=== PATIENT | female | born 1960 | race Caucasian/White ===

== ENCOUNTER 2017-04-18 22:35 | Emergency (ER) | payer MEDICAID ==
[~2017-04-18] VITALS: Ht 157.5 cm; Wt 54.0 kg
[~2017-04-18 22:35] MED LIST: BACTDS PO; CEPH-443 PO; CLIN-73 PO; HC1C30 TOP; HYDR-1049 PO; IBUP-1542 PO; OFLO5DRO7 RIGHT EAR
[2017-04-18 22:45] VITALS: Ht 157.5 cm; Wt 54.0 kg
[2017-04-18] MEDS ORDERED: SIRO1POW MC (23:37)
--- NOTE | 2017-04-18 23:44 | ERA ---
ER Documentation Chief Complaint Date/Time DATE: 04/18/17 TIME: 23:42 Chief Complaint Pt reports out of transplant med Rapamycin 1mg HPI This is a 57-year-old female who presents with a medication refill request. Patient has lost her new medication Sirolimus (rapamycin) 1 g that was prescribed by her lime kiln operator 1 week ago. Patient has not been able to reach the lime kiln operator over the weekend. I will go ahead and give a 5 day course of the medication until she can set up an appointment with lime kiln operator for medication refill. Patient denies any adverse reactions to medications or any other complaints at this time. ROS All systems reviewed and are negative except as per history of present illness. Medications Home Meds Active Scripts Sirolimus (Sirolimus) 1 Gm Powder, 1 GM MC ONCE for 5 Days Prov:CHANO GREY PA-C 04/18/17 Clindamycin Hcl* (Clindamycin Hcl*) 300 Mg Capsule, 300 MG PO TID for 10 Days, CAP Prov:HARPREET BLACK PA-C 12/28/15 Hydrocodone/Ibuprofen (Vicoprofen 200-7.5 MG) 1 Each Tablet, 1 TAB PO Q6H Y for PAIN for 7 Days, TAB Prov:SHRAVAN JIMENEZ 12/26/15 Clindamycin Hcl* (Clindamycin Hcl*) 300 Mg Capsule, 450 MG PO TID for 10 Days, CAP Prov:SHRAVAN JIMENEZ 12/26/15 Cephalexin* (Keflex*) 500 Mg Capsule, 500 MG PO QID for 7 Days, CAP Prov:ERIC JARAMILLO PA-C 08/21/15 Sulfamethoxazole-Trimethoprim* (Bactrim* DS) 800-160 Mg Tab, 1 TAB PO BID for 7 Days, TAB Prov:ERIC JARAMILLO PA-C 08/21/15 Sulfamethoxazole-Trimethoprim* (Bactrim* DS) 800-160 Mg Tab, 1 TAB PO BID for 5 Days, TAB Prov:SHRAVAN JIMENEZ 07/28/15 Cephalexin* (Keflex*) 500 Mg Capsule, 500 MG PO QID for 5 Days, CAP Prov:SHRAVAN JIMENEZ 07/28/15 Hydrocortisone* Topical (Hydrocortisone* Topical) 1%-28.35 Gm Cream..g., 1 APPLIC TOP Q6 Y for ITCHING, #1 TUB Prov:SHRAVAN JIMENEZ 07/28/15 Ibuprofen* (Motrin*) 600 Mg Tab, 600 MG PO Q6, #30 TAB Prov:SHRAVAN JIMENEZ 07/28/15 Ofloxacin* (Floxin* Otic) 0.3% -10 Ml Soln, 3 DROP RIGHT EAR BID for 10 Days, BOTTLE Prov:SHRAVAN JIMENEZ 07/28/15 Allergies Allergies: Coded Allergies: acetaminophen (Verified Allergy, Unknown, 12/28/15) PMhx/Soc History of Surgery: Yes (FALLOPIAN TUBE RESECTION) Anesthesia Reaction: No Hx Neurological Disorder: No Hx Respiratory Disorders: No Hx Cardiac Disorders: No Hx Psychiatric Problems: No Hx Miscellaneous Medical Probl: Yes (RENAL PROBLEM) Hx Alcohol Use: No Hx Substance Use: No Hx Tobacco Use: No Smoking Status: Never smoker Physical Exam Vitals Vital Signs Date Time Temp Pulse Resp B/P Pulse Ox O2 Delivery O2 Flow Rate FiO2 04/18/17 22:45 98.2 87 18 136/73 100 Physical Exam Const: Healthy appearing 57-year-old female in no acute distress. Head: Atraumatic Eyes: Normal Conjunctiva ENT: Normal External Ears, Nose and Mouth. Neck: Full range of motion..~ No meningismus. Resp: Clear to auscultation bilaterally Cardio: Regular rate, no obvious murmur heard. Abd: Soft, non tender, non distended. Normal bowel sounds Skin: No petechiae or rashes Back: No midline or flank tenderness Ext: No cyanosis, or edema Neur: Awake and alert Psych: Normal Mood and Affect Procedures/MDM Presented for medication refills. Has had no issues with the medication in the past. Have consulted my attending physician Dr. Mcfadden who has agreed that a 5 day course of the medication would be appropriate. Patient's vitals are stable and her current condition is appropriate for discharge Departure Diagnosis: Primary Impression: Kidney disease Additional Impression: Encounter for medication refill Condition: Stable Patient Instructions: Taking Medicine Safely Additional Instructions: Follow-up with original prescriber within the next week for refill of medication. If any adverse effects arise, discontinue medication and return to the emergency department immediately. If you have any questions about the medication ask us before you leave or discuss with the pharmacist. CHANO GREY PA-C April 18, 2017 23:44
[2017-04-19] MEDS ORDERED: SIRO1POW MC (00:11)
== END 2017-04-18 23:48 | disposition home or self-care (01) ==
LOC: FTE 22:35
DX: N28.9 Disorder of kidney and ureter, unspecified (principal)
CPT/HCPCS: 99281

== ENCOUNTER 2017-11-08 04:12 | Emergency (ER) | payer MEDICAID ==
[~2017-11-08] VITALS: Ht 157.5 cm; Wt 55.5 kg
[~2017-11-08 04:12] MED LIST changes: +SIRO1POW MC
[2017-11-08 04:18] VITALS: Ht 157.5 cm; Wt 55.5 kg
[2017-11-08] MEDS ORDERED: ALBUTEROL 0.083% (NEB) 2.5 MG/3 ML AMP NEB STA (05:37)
[2017-11-08] MEDS ORDERED: IPRATROPIUM (NEB) 0.5 MG/2.5 ML AMP NEB STA (05:37)
--- NOTE | 2017-11-08 05:37 | ERD ---
ER Documentation Chief Complaint Chief Complaint cough/chest congestion x 2 weeks HPI This 57 YO femal reports cough and LEE, pt states that she is coughing so hard it hurts in her back. pt reports fever 101, with body aches , sx 5 days ROS All systems reviewed and are negative except as per history of present illness. Medications Home Meds Active Scripts Ibuprofen* (Motrin*) 600 Mg Tab, 600 MG PO Q6, #30 TAB Prov:DAVID,BRENDA 11/08/17 Benzonatate* (Tessalon Perle*) 100 Mg Capsule, 200 MG PO Q8H Y for COUGH for 7 Days, CAP Prov:DAVID,BRENDA 11/08/17 Albuterol Sulfate* (Ventolin HFA*) 18 Gm Hfa.aer.ad, 2 PUFF INHALATION Q4H, #1 INHALER Prov:DAVID,BRENDA 11/08/17 Sirolimus (Sirolimus) 1 Gm Powder, 1 GM MC BID for 5 Days Prov:CHANO GREY PA-C 04/19/17 Clindamycin Hcl* (Clindamycin Hcl*) 300 Mg Capsule, 300 MG PO TID for 10 Days, CAP Prov:HARPREET BLACK PA-C 12/28/15 Hydrocodone/Ibuprofen (Vicoprofen 200-7.5 MG) 1 Each Tablet, 1 TAB PO Q6H Y for PAIN for 7 Days, TAB Prov:SHRAVAN JIMENEZ 12/26/15 Clindamycin Hcl* (Clindamycin Hcl*) 300 Mg Capsule, 450 MG PO TID for 10 Days, CAP Prov:SHRAVAN JIMENEZ 12/26/15 Cephalexin* (Keflex*) 500 Mg Capsule, 500 MG PO QID for 7 Days, CAP Prov:ERIC JARAMILLO PA-C 08/21/15 Sulfamethoxazole-Trimethoprim* (Bactrim* DS) 800-160 Mg Tab, 1 TAB PO BID for 7 Days, TAB Prov:ERIC JARAMILLO PA-C 08/21/15 Sulfamethoxazole-Trimethoprim* (Bactrim* DS) 800-160 Mg Tab, 1 TAB PO BID for 5 Days, TAB Prov:SHRAVAN JIMENEZ 07/28/15 Cephalexin* (Keflex*) 500 Mg Capsule, 500 MG PO QID for 5 Days, CAP Prov:SHRAVAN JIMENEZ 07/28/15 Hydrocortisone* Topical (Hydrocortisone* Topical) 1%-28.35 Gm Cream..g., 1 APPLIC TOP Q6 Y for ITCHING, #1 TUB Prov:SHRAVAN JIMENEZ 07/28/15 Ibuprofen* (Motrin*) 600 Mg Tab, 600 MG PO Q6, #30 TAB Prov:SHRAVAN JIMENEZ 07/28/15 Ofloxacin* (Floxin* Otic) 0.3% -10 Ml Soln, 3 DROP RIGHT EAR BID for 10 Days, BOTTLE Prov:SHRAVAN JIMENEZ 07/28/15 Allergies Allergies: Coded Allergies: acetaminophen (Verified Allergy, Mild, 11/08/17) chest tightness PMhx/Soc Medical and Surgical Hx: pt denies Medical Hx, pt denies Surgical Hx History of Surgery: No Anesthesia Reaction: No Hx Neurological Disorder: No Hx Respiratory Disorders: No Hx Cardiac Disorders: No Hx Psychiatric Problems: No Hx Miscellaneous Medical Probl: No Hx Alcohol Use: No Hx Substance Use: No Hx Tobacco Use: No Smoking Status: Never smoker Physical Exam Vitals Vital Signs Date Time Temp Pulse Resp B/P Pulse Ox O2 Delivery O2 Flow Rate FiO2 11/08/17 06:18 100 20 98 21 11/08/17 04:18 97.8 94 20 106/63 98 VSS Physical Exam Const: Well-nourished, well-hydrated, well-appearing 37-year-old female in no acute distress Eyes: Conjunctiva injected ENT: TM transcalent, nasal mucosa edematous, pharynx inflamed Neck: Full range of motion..~ No meningismus. Resp: dininshed breath sounds, cough with deep breathing, wheezing with forced exp Cardio: Regular rate and rhythm, no murmurs Abd: Soft, non tender, non distended. Normal bowel sounds Neur: Awake and alert Psych: Normal Mood and Affect Results 24 hrs Current Medications Medications (Trade) Dose Ordered Sig/Thierry Route PRN Reason Start Time Stop Time Status Last Admin Dose Admin Albuterol (Proventil 0.083% (Neb)) 7.5 mg ONCE STAT NEB 11/08/17 05:37 11/08/17 06:16 DC Ipratropium [place] (Atrovent 0.02% (Neb)) 0.5 mg ONCE STAT NEB 11/08/17 05:37 11/08/17 05:39 DC 11/08/17 06:17 Albuterol (Proventil 0.083% (Neb)) 5 mg ONCE STAT HHN 11/08/17 06:13 11/08/17 06:16 DC 11/08/17 06:18 Procedures/MDM This 57-year-old female presents to emergency department for evaluation of cough , patient reports she is coughing so hard that her back hurts, reports shortness of breath, wheezing, intermittent fever, denies history of asthma or seasonal allergies, emergency room course includes history and physical exam, patient presents coughing, wheezing with oxygen saturation documented at 94%. Emergency room course includes history and physical exam, patient receives albuterol, Atrovent hand-held nebulized treatment, oxygen saturation increases to 98% on room air, plan to discharge patient home with albuterol, Tessalon Perles, and 600 mg ibuprofen for back pain. Increase fluids, increase rest, follow-up with primary care physician. Patient is stable with no new complaints during ER course, clinically there is no current evidence to suggest meningitis, sepsis, acute abdomen, acute coronary syndromes, pulmonary embolism or any other emergent condition appearing to require further evaluation or hospitalization. I feel the patient is stable for discharge at this time. I have discussed results, examination findings, the treatment plan with the patient and family present prior to discharge. Indications for emergent reevaluation, side effects of medication were also discussed. All questions were answered. Patient verbalizes understanding and agrees with plan of care. Departure Diagnosis: Primary Impression: Bronchitis Condition: Good Patient Instructions: Acute Bronchitis Additional Instructions: Thank you for for coming to [facility] for your care today. Please ask your nurse or provider if you have questions about your care today and do not leave until all your questions have been answered. Please use any medications given as directed and follow-up with your doctor (or the doctor you were referred to) in the next 2-3 days. If you do not have a primary care doctor you may follow up at the [facility] (listed below). You may also use motrin and tylenol as needed for fever and/or pain unless instructed otherwise by your provider or nurse. Indications for more urgent follow-up have been discussed, but you may return to the Emergency Department at ANY time for any worrisome or worsening symptoms. If you have abdominal pain, please know that no test or exam you received is perfect and you should follow up within 8 hours for continued pain. If you had any imaging studies today, such as an X-Ray or CT Scan, these studies will be reviewed later by a radiologist. You will be called if there are important findings that were not identified today, so make sure the contact information you provided at registration is correct. If you received any narcotic pain control medicine today, such as Vicodin, Morphine or Dilaudid, your coordination and judgment may be affected for a number of hours. Please do not drive or operate heavy machinery, and you may want someone to assist you at home. If you were given a prescription for narcotic medication, be aware that it is very addictive- use sparingly and only if necessary. BRENDA HERNANDEZ Nov 08, 2017 05:37
[2017-11-08] MEDS ORDERED: ALBUTEROL 0.083% (NEB) 2.5 MG/3 ML AMP HHN STA (06:13)
[2017-11-08] MEDS ORDERED: ALBU18HF INHALATION (07:19)
[2017-11-08] MEDS ORDERED: BENZ100C70 PO (07:20)
[2017-11-08] MEDS ORDERED: IBUP-1542 PO ×2 (07:20→15:34)
[2017-11-08] MEDS ORDERED: ALBU8.5H3 INH (15:34)
[2017-11-08] MEDS ORDERED: D-ME473S2 PO (15:35)
== END 2017-11-08 08:47 | disposition left against medical advice (07) ==
LOC: FTE 04:12
DX: J40 Bronchitis, not specified as acute or chronic (principal)
CPT/HCPCS: 94664; Z7502; Z7610

== ENCOUNTER 2017-11-08 12:11 | Emergency (ER) | payer MEDICAID ==
[~2017-11-08] VITALS: Ht 154.9 cm; Wt 56.8 kg
[~2017-11-08 12:11] MED LIST changes: +ALBU18HF INHALATION; +BENZ100C70 PO
[2017-11-08 12:16] VITALS: Ht 154.9 cm; Wt 56.8 kg
--- NOTE | 2017-11-08 13:38 | ERD ---
ER Documentation Chief Complaint Chief Complaint flu like symptoms x 5 days HPI The patient is a 57-year-old female, presenting to the ER because of nasal congestion, nasal discharge, intermittent cough for the last 5 days. She was seen earlier today and discharged. She complains of subjective fever, denies neck pain, chest pain, abdominal pain, vomiting, dysuria, diarrhea. She does not smoke nor drink Past medical/surgical history: None ROS All systems reviewed and are negative except as per history of present illness. Medications Home Meds Active Scripts Ibuprofen* (Motrin*) 600 Mg Tab, 600 MG PO Q6, #30 TAB Prov:DAVID,BRENDA 11/08/17 Benzonatate* (Tessalon Perle*) 100 Mg Capsule, 200 MG PO Q8H Y for COUGH for 7 Days, CAP Prov:DAVID,BRENDA 11/08/17 Albuterol Sulfate* (Ventolin HFA*) 18 Gm Hfa.aer.ad, 2 PUFF INHALATION Q4H, #1 INHALER Prov:DAVID,BRENDA 11/08/17 Sirolimus (Sirolimus) 1 Gm Powder, 1 GM MC BID for 5 Days Prov:CHANO GREYC 04/19/17 Clindamycin Hcl* (Clindamycin Hcl*) 300 Mg Capsule, 300 MG PO TID for 10 Days, CAP Prov:HARPREET BLACK PA-C 12/28/15 Hydrocodone/Ibuprofen (Vicoprofen 200-7.5 MG) 1 Each Tablet, 1 TAB PO Q6H Y for PAIN for 7 Days, TAB Prov:SHRAVAN JIMENEZ 12/26/15 Clindamycin Hcl* (Clindamycin Hcl*) 300 Mg Capsule, 450 MG PO TID for 10 Days, CAP Prov:SHRAVAN JIMENEZ 12/26/15 Cephalexin* (Keflex*) 500 Mg Capsule, 500 MG PO QID for 7 Days, CAP Prov:ERIC JARAMILLO PA-C 08/21/15 Sulfamethoxazole-Trimethoprim* (Bactrim* DS) 800-160 Mg Tab, 1 TAB PO BID for 7 Days, TAB Prov:ERIC JARAMILLO PA-C 08/21/15 Sulfamethoxazole-Trimethoprim* (Bactrim* DS) 800-160 Mg Tab, 1 TAB PO BID for 5 Days, TAB Prov:SHRAVAN JIMENEZ 07/28/15 Cephalexin* (Keflex*) 500 Mg Capsule, 500 MG PO QID for 5 Days, CAP Prov:SHRAVAN JIMENEZ 07/28/15 Hydrocortisone* Topical (Hydrocortisone* Topical) 1%-28.35 Gm Cream..g., 1 APPLIC TOP Q6 Y for ITCHING, #1 TUB Prov:SHRAVAN JIMENEZ 07/28/15 Ibuprofen* (Motrin*) 600 Mg Tab, 600 MG PO Q6, #30 TAB Prov:SHRAVAN JIMENEZ 07/28/15 Ofloxacin* (Floxin* Otic) 0.3% -10 Ml Soln, 3 DROP RIGHT EAR BID for 10 Days, BOTTLE Prov:SHRAVAN JIMENEZ 07/28/15 Allergies Allergies: Coded Allergies: acetaminophen (Verified Allergy, Mild, 11/08/17) chest tightness PMhx/Soc History of Surgery: No Anesthesia Reaction: No Hx Neurological Disorder: No Hx Respiratory Disorders: No Hx Cardiac Disorders: No Hx Psychiatric Problems: No Hx Miscellaneous Medical Probl: No Hx Alcohol Use: No Hx Substance Use: No Hx Tobacco Use: No Physical Exam Vitals Vital Signs Date Time Temp Pulse Resp B/P Pulse Ox O2 Delivery O2 Flow Rate FiO2 11/08/17 15:18 98.8 100 12 107/59 98 Room Air 11/08/17 14:07 110 20 96 21 11/08/17 12:16 100.6 110 20 122/75 96 Physical Exam Const: No acute distress. Head: Atraumatic. Eyes: Normal Conjunctiva. ENT: Normal External Ears, Nose and Mouth. Neck: Full range of motion. No meningismus. Resp: BL expiratory wheezes Cardio: Regular tachycardic Abd: Soft, non distended, normal bowel sounds, non tender. Skin: No petechiae or rashes. Back: No midline or flank tenderness. Ext: No cyanosis, or edema. Neur: Awake and alert. No focal deficit Psych: Normal Mood and Affect. Results 24 hrs Current Medications Medications (Trade) Dose Ordered Sig/Thierry Route PRN Reason Start Time Stop Time Status Last Admin Dose Admin Sodium Chloride (NS) 1,000 ml @ 1,000 mls/hr Q1H ONCE IV 11/08/17 14:00 11/08/17 14:59 DC 11/08/17 14:14 Ketorolac Tromethamine (Toradol) 30 mg ONCE STAT IV 11/08/17 13:47 11/08/17 13:49 DC 11/08/17 14:14 Levalbuterol (Xopenex Neb) 1.25 mg ONCE ONCE HHN 11/08/17 14:00 11/08/17 14:01 DC 11/08/17 14:06 Ipratropium [place] (Atrovent 0.02% (Neb)) 0.5 mg ONCE ONCE N 11/08/17 14:00 11/08/17 14:01 DC 11/08/17 14:05 Procedures/[place] [address] Radiology Main Line: [phone] DIAGNOSTIC IMAGING REPORT Patient: UMU ENRIQUE : 1960 Age: 57 Sex: F MR #: [id number] DOS: 11/08/17 1347 Ordering MD: CHANO MARTINEZ MD Location: E/R Room/Bed: PROCEDURE: XR Chest. CLINICAL INDICATION: cough TECHNIQUE: Single frontal view of the chest was obtained COMPARISON: None FINDINGS: The heart and mediastinum are within normal limits. The lungs are clear. There is no pleural effusion or pneumothorax. The bones and soft tissue show no acute change. IMPRESSION: No definite abnormalities are identified. RPTAT:AAJJ Physician Amos Date Time Electronically viewed and signed by Juan Lopez Physician on 11/08/2017 14: 04 MC/ CC: CHANO MARTINEZ MD MEDICAL MAKING DECISION: The patient is a 57-year-old female, presenting to the ER because of acute viral syndrome, acute dehydration. She was treated with 1 L normal saline for acute dehydration, Toradol 30 mg IV for general body pain with good response. VS improved The differential diagnoses considered include but are not limited to influenza, viral syndrome, pneumonia, cystitis Departure Diagnosis: Primary Impression: Viral syndrome Additional Impression: Dehydration Condition: Good Comments She was discharged with Phenergan DM, Motrin, albuterol I I discussed the findings with the patient. I advised the patient to follow-up with the primary physician in about 1-2 days, sooner if needed and return if any concern. Disclaimer: Inadvertent spelling and grammatical errors are likely due to EHR/ dictation software use and do not reflect on the overall quality of patient care. Also, please note that the electronic time recorded on this note does not necessarily reflect the actual time of the patient encounter. CHANO MARTINEZ MD Nov 08, 2017 13:38
[2017-11-08] MEDS ORDERED: KETOROLAC 30 MG INJ IV STA (13:47)
[2017-11-08] MEDS ORDERED: LEVALBUTEROL (NEB) 1.25 MG/0.5 ML AMP HHN ONE (14:00)
[2017-11-08] MEDS ORDERED: IPRATROPIUM (NEB) 0.5 MG/2.5 ML AMP HHN ONE (14:00)
[2017-11-08] MEDS ORDERED: SOD CHLORIDE 0.9% 1,000 ML IV ONE (14:00)
--- NOTE | 2017-11-08 14:04 | RADRPT ---
PROCEDURE: XR Chest. CLINICAL INDICATION: cough TECHNIQUE: Single frontal view of the chest was obtained COMPARISON: None FINDINGS: The heart and mediastinum are within normal limits. The lungs are clear. There is no pleural effusion or pneumothorax. The bones and soft tissue show no acute change. IMPRESSION: No definite abnormalities are identified. RPTAT:AAJJ Juan Lopez Physician Date Time Electronically viewed and signed by Juan Lopez Physician on 11/08/2017 14:04 /
[2017-11-08 15:18] VITALS: BP 107/59; PULSE 100; RESP 12; TEMP 98.8
[2017-11-08] MEDS ORDERED: ALBU8.5H3 INH (15:34)
[2017-11-08] MEDS ORDERED: IBUP-1542 PO (15:34)
[2017-11-08] MEDS ORDERED: D-ME473S2 PO (15:35)
== END 2017-11-08 15:44 | disposition home or self-care (01) ==
LOC: E/R 12:11
DX: B34.9 Viral infection, unspecified (principal); E86.0 Dehydration
CPT/HCPCS: 71010; 87400; 94664; 96374; J1885; J7030; Z7502; Z7610

== ENCOUNTER 2017-11-22 18:01 | Emergency (ER) | END 2017-11-22 23:17 | disposition left against medical advice (07) ==

== ENCOUNTER 2018-03-31 00:07 | Emergency (ER) | END 2018-03-31 02:45 | disposition home or self-care (01) ==

== ENCOUNTER 2018-08-14 18:51 | Emergency (ER) | END 2018-08-14 21:15 | disposition home or self-care (01) ==

== ENCOUNTER 2018-08-18 23:21 | Emergency (ER) | END 2018-08-19 05:06 | disposition left against medical advice (07) ==

== ENCOUNTER 2019-01-09 10:09 | Emergency (ER) | payer MEDICAID ==
[~2019-01-09] VITALS: Ht 152.4 cm; Wt 58.6 kg
[~2019-01-09 10:09] MED LIST changes: +ALBU8.5H8 INH; +AMOX1TAB10 PO; +BENZ-6 PO; -BENZ100C70 PO; -CLIN-73 PO; +CLIN300C10 PO; +D-ME473S2 PO; +NAPR-985 PO; +TRAM50TA PO
[2019-01-09 10:11] VITALS: BP 141/84; PULSE 92; RESP 18; Ht 152.4 cm; Wt 58.6 kg
--- NOTE | 2019-01-09 10:29 | ERD ---
ER Documentation Chief Complaint Chief Complaint painful urination , blood in urine x few days HPI 58-year-old female, previously healthy, presents the emergency department, complaining of dysuria and mild hematuria for days. She denies fevers, no chills, no nausea or vomiting. ROS All systems reviewed and are negative except as per history of present illness. Medications Home Meds Active Scripts Ibuprofen* (Motrin*) 400 Mg Tab, 400 MG PO Q8, #15 TAB Prov:ARJUN LU MD 01/09/19 Ciprofloxacin Hcl* (Ciprofloxacin Hcl*) 250 Mg Tablet, 250 MG PO BID, #10 TAB Prov:ARJUN LU MD 01/09/19 Naproxen* (Naprosyn*) 500 Mg Tablet, 500 MG PO BID PRN for PAIN AND/OR INFLAMMATION, #14 TAB Prov:CHANO GREY PA-C 03/31/18 Amoxicillin/Potassium Clav (Amox-Clav 875-125 mg Tablet) 875-125 mg Tab, 1 TAB PO BID for 7 Days, #14 TAB Prov:CHANO GREY PA-C 03/31/18 Tramadol Hcl* (Ultram*) 50 Mg Tablet, 50 MG PO Q6H PRN for PAIN for 5 Days, #20 TAB Prov:ARJUN LU MD 11/22/17 Dextromethorphan Hb-Promethazine Hcl* (Promethazine DM* Syrup) 473 Ml Syrup, 10 ML PO Q6 PRN for COUGH, #120 ML Prov:CHANO MARTINEZ MD 11/08/17 Ibuprofen* (Motrin*) 600 Mg Tab, 600 MG PO Q6, #30 TAB Prov:CHANO MARTINEZ MD 11/08/17 Albuterol Sulfate* (Proair HFA*) 8.5 Gm Hfa.aer.ad, 2 PUFF INH Q4, #1 INHALER Prov:CHANO MARTINEZ MD 11/08/17 Ibuprofen* (Motrin*) 600 Mg Tab, 600 MG PO Q6, #30 TAB Prov:DAVID,BRENDA 11/08/17 Benzonatate* (Tessalon Perle*) 100 Mg Capsule, 200 MG PO Q8H PRN for COUGH for 7 Days, CAP Prov:DAVID,BRENDA 11/08/17 Albuterol Sulfate* (Ventolin HFA*) 18 Gm Hfa.aer.ad, 2 PUFF INHALATION Q4H, #1 INHALER Prov:BRENDA HERNANDEZ 11/08/17 Sirolimus (Sirolimus) 1 Gm Powder, 1 GM MC BID for 5 Days Prov:CHANO GREY PA-C 04/19/17 Clindamycin Hcl* (Clindamycin Hcl*) 300 Mg Capsule, 300 MG PO TID for 10 Days, CAP Prov:HARPREET BLACK PA-C 12/28/15 Hydrocodone/Ibuprofen (Vicoprofen 200-7.5 MG) 1 Each Tablet, 1 TAB PO Q6H PRN for PAIN for 7 Days, TAB Prov:SHRAVAN JIMENEZ 12/26/15 Clindamycin Hcl* (Clindamycin Hcl*) 300 Mg Capsule, 450 MG PO TID for 10 Days, CAP Prov:SHRAVAN JIMENEZ 12/26/15 Cephalexin* (Keflex*) 500 Mg Capsule, 500 MG PO QID for 7 Days, CAP Prov:ERIC JARAMILLO PA-C 08/21/15 Sulfamethoxazole-Trimethoprim* (Bactrim* DS) 800-160 Mg Tab, 1 TAB PO BID for 7 Days, TAB Prov:ERIC JARAMILLO PA-C 08/21/15 Sulfamethoxazole-Trimethoprim* (Bactrim* DS) 800-160 Mg Tab, 1 TAB PO BID for 5 Days, TAB Prov:SHRAVAN JIMNEEZ 07/28/15 Cephalexin* (Keflex*) 500 Mg Capsule, 500 MG PO QID for 5 Days, CAP Prov:SHRAVAN JIMENEZ 07/28/15 Hydrocortisone* Topical (Hydrocortisone* Topical) 1%-28.35 Gm Cream..g., 1 APPLIC TOP Q6 PRN for ITCHING, #1 TUB Prov:SHRAVAN JIMENEZ 07/28/15 Ibuprofen* (Motrin*) 600 Mg Tab, 600 MG PO Q6, #30 TAB Prov:SHRAVAN JIMENEZ 07/28/15 Ofloxacin* (Floxin* Otic) 0.3% -10 Ml Soln, 3 DROP RIGHT EAR BID for 10 Days, BOTTLE Prov:SHRAVAN JIMENEZ 07/28/15 Allergies Allergies: Coded Allergies: acetaminophen (Verified Allergy, Mild, 11/08/17) chest tightness PMhx/Soc History of Surgery: No Anesthesia Reaction: No Hx Neurological Disorder: No Hx Respiratory Disorders: No Hx Cardiac Disorders: No Hx Psychiatric Problems: No Hx Miscellaneous Medical Probl: No Hx Alcohol Use: No Hx Substance Use: No Hx Tobacco Use: No FmHx Family History: No diabetes, No coronary disease Physical Exam Vitals Vital Signs Date Temp Pulse Resp B/P (MAP) Pulse Ox O2 O2 Flow FiO2 Time Delivery Rate 01/09/19 98.3 92 18 141/84 98 10:11 (103) Physical Exam Const: No acute distress Head: Atraumatic Eyes: Normal Conjunctiva ENT: Normal External Ears, Nose and Mouth. Neck: Full range of motion. No meningismus. Resp: Clear to auscultation bilaterally Cardio: Regular rate and rhythm, no murmurs Abd: Soft, non tender, non distended. Normal bowel sounds Skin: No petechiae or rashes Back: No midline or flank tenderness Ext: No cyanosis, or edema Neur: Awake and alert Psych: Normal Mood and Affect Results 24 hrs Laboratory Tests Test 01/09/19 11:10 Bedside Urine pH (LAB) 7.0 Bedside Urine Protein (LAB) 2+ Bedside Urine Glucose (UA) Negative Bedside Urine Ketones (LAB) Negative Bedside Urine Blood Trace-intact Bedside Urine Nitrite (LAB) Negative Bedside Urine Leukocyte Esterase (L 3+ Procedures/MDM Differential diagnosis include but not limited to: UTI, colitis, gastroenteritis, kidney stones, irritable bowel syndrome, inflammatory bowel syn drome, malabsorption syndrome, cholelithiasis, food intolerance, medication side effect, pancreatitis, diverticulitis, bowel obstruction. Low suspicion for acute abdomen Physical examination and clinical presentation consistent most likely with urinary tract infection. During the ED course the patient remained stable, no new complaints. Results and clinical impression discussed with patient who agrees with management. The patient is stable to be treated outpatient and will be discharged home, some side effects of prescribed medications (headache, rash, nausea, vomiting, diarrhea, drowsiness, habituation, bleeding, hypertension, in teractions with other medications) were reviewed. The patient was instructed to follow up with the primary care provider in the next 48h. If symptoms persist, worsen or new symptoms develop, then patient should return to the ED immediately. Instructions explained and given directly by me to the patient with acknowledgment and demonstrated understanding. Disclaimer: Inadvertent spelling and grammatical errors are likely due to EHR/dictation software use and do not reflect on the overall quality of patient care. Also, please note that the electronic time recorded on this note does not necessarily reflect the actual time of the patient encounter. Departure Diagnosis: Primary Impression: UTI (urinary tract infection) Condition: Stable Additional Instructions: Thank you very much for allowing us to participate in your care. Your health and safety is our top priority at [facility]. Call your primary care doctor TOMORROW for an appointment during the next 2-4 days and bring all the information and medications prescribed. Have prescriptions filled and follow precisely the directions on the label. If the symptoms get worse and your provider is unavailable, return to the Emergency Department immediately. ARJUN LU MD Jan 09, 2019 10:29
[2019-01-09] MEDS ORDERED: CIPR-193 PO (10:54)
[2019-01-09] MEDS ORDERED: IBUP-1561 PO (10:54)
== END 2019-01-09 11:45 | disposition home or self-care (01) ==
LOC: FTE 10:09
DX: N39.0 Urinary tract infection, site not specified (principal)
CPT/HCPCS: 81003; Z7502; 99283

== ENCOUNTER 2019-02-23 10:12 | Emergency (ER) | payer MEDICAID ==
[~2019-02-23] VITALS: Wt 65.0 kg
[~2019-02-23 10:12] MED LIST changes: +CIPR-193 PO; +IBUP-1561 PO
[2019-02-23] MEDS ORDERED: SOD CHLORIDE 0.9% 500 ML IV STA (10:49)
--- NOTE | 2019-02-23 11:59 | ERD ---
ER Documentation Chief Complaint Chief Complaint lucas and dizziness sudden onset 30 min. no neuro def. no visual disturbance HPI 59-year-old female presents the emergency department complaining of lightheadedness. Patient states that over the last hour or so, she had a sensation of lightheadedness. She reported no headache, focal weakness, numbness, difficulty speaking. She reported no fevers, chills. She reports no chest pain or palpitations. Her dizziness was nonspecific ROS All systems reviewed and are negative except as per history of present illness. Medications Home Meds Discontinued Scripts Ibuprofen* (Motrin*) 400 Mg Tab, 400 MG PO Q8, #15 TAB Prov:ARJUN LU MD 01/09/19 Ciprofloxacin Hcl* (Ciprofloxacin Hcl*) 250 Mg Tablet, 250 MG PO BID, #10 TAB Prov:ARJUN LU MD 01/09/19 Naproxen* (Naprosyn*) 500 Mg Tablet, 500 MG PO BID PRN for PAIN AND/OR INFLAMMATION, #14 TAB Prov:CHANO GREY PA-C 03/31/18 Amoxicillin/Potassium Clav (Amox-Clav 875-125 mg Tablet) 875-125 mg Tab, 1 TAB PO BID for 7 Days, #14 TAB Prov:CHANO GREY PA-C 03/31/18 Tramadol Hcl* (Ultram*) 50 Mg Tablet, 50 MG PO Q6H PRN for PAIN for 5 Days, #20 TAB Prov:ARJUN LU MD 11/22/17 Dextromethorphan Hb-Promethazine Hcl* (Promethazine DM* Syrup) 473 Ml Syrup, 10 ML PO Q6 PRN for COUGH, #120 ML Prov:CHANO MARTINEZ MD 11/08/17 Ibuprofen* (Motrin*) 600 Mg Tab, 600 MG PO Q6, #30 TAB Prov:CHANO MARTINEZ MD 11/08/17 Albuterol Sulfate* (Proair HFA*) 8.5 Gm Hfa.aer.ad, 2 PUFF INH Q4, #1 INHALER Prov:CHANO MARTINEZ MD 11/08/17 Ibuprofen* (Motrin*) 600 Mg Tab, 600 MG PO Q6, #30 TAB Prov:DAVIDBRENDA 11/08/17 Benzonatate* (Tessalon Perle*) 100 Mg Capsule, 200 MG PO Q8H PRN for COUGH for 7 Days, CAP Prov:DAVID,BRENDA 11/08/17 Albuterol Sulfate* (Ventolin HFA*) 18 Gm Hfa.aer.ad, 2 PUFF INHALATION Q4H, #1 I NHALER Prov:DAVID,BRENDA 11/08/17 Sirolimus (Sirolimus) 1 Gm Powder, 1 GM MC BID for 5 Days Prov:CHANO GREY PA-C 04/19/17 Clindamycin Hcl* (Clindamycin Hcl*) 300 Mg Capsule, 300 MG PO TID for 10 Days, CAP Prov:HARPREET BLACK PA-C 12/28/15 Hydrocodone/Ibuprofen (Vicoprofen 200-7.5 MG) 1 Each Tablet, 1 TAB PO Q6H PRN for PAIN for 7 Days, TAB Prov:SHRAVAN JIMENEZ 12/26/15 Clindamycin Hcl* (Clindamycin Hcl*) 300 Mg Capsule, 450 MG PO TID for 10 Days, CAP Prov:SHRAVAN JIMENEZ 12/26/15 Cephalexin* (Keflex*) 500 Mg Capsule, 500 MG PO QID for 7 Days, CAP Prov:ERIC JARAMILLO PA-C 08/21/15 Sulfamethoxazole-Trimethoprim* (Bactrim* DS) 800-160 Mg Tab, 1 TAB PO BID for 7 Days, TAB Prov:ERIC JARAMILLO PA-C 08/21/15 Sulfamethoxazole-Trimethoprim* (Bactrim* DS) 800-160 Mg Tab, 1 TAB PO BID for 5 Days, TAB Prov:SHRAVAN JIMENEZ 07/28/15 Cephalexin* (Keflex*) 500 Mg Capsule, 500 MG PO QID for 5 Days, CAP Prov:SHRAVAN JIMENEZ 07/28/15 Hydrocortisone* Topical (Hydrocortisone* Topical) 1%-28.35 Gm Cream..g., 1 APPLIC TOP Q6 PRN for ITCHING, #1 TUB Prov:SHRAVAN JIMENEZ 07/28/15 Ibuprofen* (Motrin*) 600 Mg Tab, 600 MG PO Q6, #30 TAB Prov:SHRAVAN JIMENEZ 9/5/15 Ofloxacin* (Floxin* Otic) 0.3% -10 Ml Soln, 3 DROP RIGHT EAR BID for 10 Days, BOTTLE Prov:SHRAVAN JIMENEZ 07/28/15 Allergies Allergies: Coded Allergies: acetaminophen (Verified Allergy, Mild, 02/23/19) chest tightness PMhx/Soc History of Surgery: No Anesthesia Reaction: No Hx Neurological Disorder: No Hx Respiratory Disorders: No Hx Cardiac Disorders: No Hx Psychiatric Problems: No Hx Miscellaneous Medical Probl: Yes (recurrent bladder infection) Hx Alcohol Use: No Hx Substance Use: No Hx Tobacco Use: No Smoking Status: Never smoker Physical Exam Vitals Vital Signs Date Temp Pulse Resp B/P (MAP) Pulse Ox O2 O2 Flow FiO2 Time Delivery Rate 02/23/19 98.7 100 20 133/88 100 10:17 (103) Physical Exam GENERAL: The patient is well developed and appropriate for usual state of health in no apparent distress HEENT: Pupils equal, round, and reactive to light. EOMI. There is no scleral icterus. NECK: C-spine is soft and supple, there is no meningismus. There is no cervical lymphadenopathy. LUNGS: Clear to auscultation bilaterally. There are no rales, wheezes or rhonchi. HEART: Regular rate and rhythm, no murmurs, clicks, rubs or gallops. ABDOMEN: Soft, non-tender, non-distended. There are bowel sounds in all four quadrants. No rebound or guarding. EXTREMITIES: There is no peripheral cyanosis or edema. No focal swelling or erythema. NEURO: The patient moves all four extremities with 5/5 strength. Cranial nerves II - XII are intact. Normal gait. Alert and oriented. Finger to nose is normal. SKIN: There is no apparent rash or petechiae. HEME/LYMPHATIC: There is no evidence of excessive bruising or lymphedema. PSYCHIATRIC: The patient does not appear anxious or depressed. Result Diagram: 02/23/19 1059 02/23/19 1059 Results 24 hrs Laboratory Tests Test 02/23/19 10:57 02/23/19 10:59 Bedside Glucose 81 mg/dL White Blood Count 9.9 10^3/ul Red Blood Count 4.70 10^6/ul Hemoglobin 14.2 g/dl Hematocrit 42.8 % Mean Corpuscular Volume 91.1 fl Mean Corpuscular Hemoglobin 30.2 pg Mean Corpuscular Hemoglobin Concent 33.2 g/dl Red Cell Distribution Width 12.4 % Platelet Count 310 10^3/UL Mean Platelet Volume 9.9 fl Immature Granulocytes % 0.700 % Neutrophils % 88.4 % Lymphocytes % 6.0 % Monocytes % 2.3 % Eosinophils % 2.4 % Basophils % 0.2 % Nucleated Red Blood Cells % 0.0 /100WBC Immature Granulocytes # 0.070 10^3/ul Neutrophils # 8.7 10^3/ul Lymphocytes # 0.6 10^3/ul Monocytes # 0.2 10^3/ul Eosinophils # 0.2 10^3/ul Basophils # 0.0 10^3/ul Nucleated Red Blood Cells # 0.0 10^3/ul Sodium Level 139 mmol/L Potassium Level 4.5 mmol/L Chloride Level 103 mmol/L Carbon Dioxide Level 25 mmol/L Anion Gap 11 Blood Urea Nitrogen 28 mg/dl Creatinine 0.59 mg/dl Est Glomerular Filtrat Rate mL/min > 60 mL/min Glucose Level 90 mg/dl Calcium Level 9.5 mg/dl Troponin I < 0.012 ng/ml Current Medications Medications Dose Sig/Thierry Start Time Status Last (Trade) Ordered Route PRN Stop Time Admin Dose Reason Admin Sodium 500 ml @ Q1H STAT 02/23/19 DC 02/23/19 Chloride 500 mls/hr IV 10:49 02/23/19 11:12 11:48 Procedures/MDM Patient was taken to a room, seen and evaluated. Comfort measures were initiated. Diagnostic tests were ordered and reviewed. 3 LEAD RHYTHM STRIP: Normal sinus rhythm without ectopy EK lead EKG reviewed by myself: Normal Sinus Rhythm Normal [place] and intervals No ST elevation, depression, or T wave inversion Impression: Normal EKG RADIOLOGY: Reviewed with the radiologist REEVALUATION: Patient remained neurologically normal and hemodynamic is stable. Diagnostic tests were appreciated and patient seemed appropriate for discharge MEDICAL DECISION MAKIN-year-old female presents with nonspecific dizziness with no evidence of acute neurologic dysfunction or central neurologic findings. Patient has no clinical evidence of stroke. At this time, her evaluation, which focused on cardiac concerns, electrolyte and other concerns is essentially nondiagnostic. She has no evidence of severe infection, no evidence of dehydration. She appears overall clinically well and appropriate for outpatient supportive care. Departure Diagnosis: Primary Impression: Dizziness Condition: Stable Patient Instructions: Dizziness, Unk Cause Additional Instructions: See your doctor for follow-up as discussed. Take a copy of your test results, if appropriate, to this follow-up visit. See your doctor or return here if your symptoms do not improve as expected. At any time, please return to the emergency department for any change or worsening in her symptoms. ADRIANE DAHL Feb 23, 2019 11:59
[2019-02-23 12:09] VITALS: BP 107/52; PULSE 89; RESP 14
== END 2019-02-23 12:12 | disposition home or self-care (01) ==
LOC: E/R 10:12
DX: R42 Dizziness and giddiness (principal)
CPT/HCPCS: 36415; 71045; 80048; 82962; 84484; 85025; 93005; J7040; Z7502

== ENCOUNTER 2019-06-21 07:19 | Emergency (ER) | payer MEDICAID ==
[~2019-06-21] VITALS: Ht 157.5 cm; Wt 57.2 kg
[~2019-06-21 07:19] MED LIST changes: -ALBU18HF INHALATION; -ALBU8.5H8 INH; -AMOX1TAB10 PO; -BACTDS PO; -BENZ-6 PO; -CIPR-193 PO; -CLIN300C10 PO; -D-ME473S2 PO; +ERYT1OIN6 RIGHT EYE; -HC1C30 TOP; -HYDR-1049 PO; -IBUP-1542 PO; -IBUP-1561 PO; -OFLO5DRO7 RIGHT EAR; +POLY10DR19 RIGHT EYE; -SIRO1POW MC; -TRAM50TA PO
[2019-06-21 07:21] VITALS: BP 139/77; PULSE 92; RESP 18; Ht 157.5 cm; Wt 57.2 kg
--- NOTE | 2019-06-21 07:54 | ERD ---
ER Documentation Chief Complaint Chief Complaint red warm & swollen top left foot last night, possible bite HPI 59-year-old female presenting with redness to the top of her left foot. She noticed this last night and feet thinks she was bitten by a insect. She has not use any medications and denies any fevers. She is never had this before. Denies IV drug use. Denies medical problems. Surgical history denies. Social history denies. Allergy to Tylenol. ROS All systems reviewed and are negative except as per history of present illness. Medications Home Meds Active Scripts Naproxen* (Naprosyn*) 500 Mg Tablet, 500 MG PO BID PRN for PAIN AND/OR INFLAMMATION, #30 TAB Prov:ERIC JARAMILLO PA-C 06/21/19 Cephalexin* (Keflex*) 500 Mg Capsule, 500 MG PO QID for 7 Days, CAP Prov:ERIC JARAMILLO PA-C 06/21/19 Allergies Allergies: Coded Allergies: acetaminophen (Verified Allergy, Mild, 02/23/19) chest tightness PMhx/Soc Medical and Surgical Hx: pt denies Medical Hx, pt denies Surgical Hx History of Surgery: No Anesthesia Reaction: No Hx Neurological Disorder: No Hx Respiratory Disorders: No Hx Cardiac Disorders: No Hx Psychiatric Problems: No Hx Miscellaneous Medical Probl: Yes (recurrent bladder infection) Hx Alcohol Use: No Hx Substance Use: No Hx Tobacco Use: No Smoking Status: Never smoker FmHx Family History: No diabetes, No coronary disease, No other Physical Exam Vitals Vital Signs Date Temp Pulse Resp B/P (MAP) Pulse Ox O2 O2 Flow FiO2 Time Delivery Rate 06/21/19 97.6 92 18 139/77 100 07:21 (97) Physical Exam GENERAL: The patient is well-appearing, well-nourished, in no acute distress HEENT: Atraumatic. Conjunctivae are pink. Pupils equal, round, and reactive to light. There is no scleral icterus. Tympanic membranes clear bilaterally. Oropharynx clear. CHEST: Clear to auscultation bilaterally. There are no rales, wheezes or rhonchi. HEART: Regular rate and rhythm. No murmurs, clicks, rubs or gallops. EXTREMITIES: Equal pulses bilaterally. There is no peripheral clubbing, cyanosis or edema. No focal swelling or erythema. Full range of motion. Grossly neurovascularly intact. NEUROLOGIC: Alert and oriented. Cranial nerves II through XII intact. Motor strength in all 4 extremities with 5 out of 5 strength. Sensation grossly intact. SKIN: Erythema noted to the dorsal aspect of the left foot. No fluctuance but m ild tenderness to palpation. No lymphatic streaking. Compartments soft. Procedures/MDM MDM: 59-year-old female presenting with swelling to the top of her left foot. Patient may have sustained a bug bite and redness may be reactive however because she had tenderness to palpation I will treat for possible early infectious process. I have low suspicion for compartment syndrome. A low suspicion for acute fracture dislocation as patient does not have traumatic injury. Patient will be treated with antibiotics and told to follow-up with primary care within 1 to 2 days for close evaluation. All questions answered at discharge Departure Diagnosis: Primary Impression: Bite wound Condition: Stable Patient Instructions: Animal Bite, General Referrals: [facility] YOU HAVE RECEIVED A MEDICAL SCREENING EXAM AND THE RESULTS INDICATE THAT YOU DO NOT HAVE A CONDITION THAT REQUIRES URGENT TREATMENT IN THE EMERGENCY DEPARTMENT. FURTHER EVALUATION AND TREATMENT OF YOUR CONDITION CAN WAIT UNTIL YOU ARE SEEN IN YOUR DOCTORS OFFICE WITHIN THE NEXT 1-2 DAYS. IT IS YOUR RESPONSIBILITY TO MAKE AN APPOINTMENT FOR FOLOW-UP CARE. IF YOU HAVE A PRIMARY DOCTOR --you should call your primary doctor and schedule an appointment IF YOU DO NOT HAVE A PRIMARY DOCTOR YOU CAN CALL OUR PHYSICIAN REFERRAL HOTLINE AT IF YOU CAN NOT AFFORD TO SEE A PHYSICIAN YOU CAN CHOSE FROM THE FOLLOWING [facility] [address] [facility] [address] [facility] [address] [facility] [address] [facility]. [facility] [address] [facility]. [facility]. [address] Additional Instructions: FOLLOW UP WITH YOUR PRIMARY CARE PHYSICIAN TOMORROW.Return to this facility if you are not improving as expected. ERIC JARAMILLO PA-C Jun 21, 2019 07:54
== END 2019-06-21 08:09 | disposition home or self-care (01) ==
LOC: FTE 07:19
DX: S90.862A Insect bite (nonvenomous), left foot, initial encounter (principal); W57.XXXA Bitten or stung by nonvenomous insect and other nonvenomous arthropods, initial encounter; Y92.9 Unspecified place or not applicable
CPT/HCPCS: 99283

== ENCOUNTER → 2019-07-08 | Emergency (ER) | payer MEDICAID ==
[~2019-07-08] VITALS: Ht 160 cm; Wt 54.5 kg
[2019-07-08 07:27] VITALS: BP 111/72; PULSE 75; RESP 17; Ht 160 cm; Wt 54.5 kg
--- NOTE | 2019-07-08 09:00 | ERD ---
ER Documentation Chief Complaint Chief Complaint RIGHT EYE PAIN X2 DAYS, POSSIBLE FOREIGN OBJECT HPI This is 59-year-old female presents to the ED with 2 complaints. Patient is complaining of a sensation of itchiness and pain to her right eye for the past 2 days. She states she feels like there is something in her eye but denies any trauma or foreign body. She states she has green discharge in the mornings and is unable to open her eye secondary to pain. She has been itching her eyes with discomfort. Minimal tearing. No photophobia. No headache. No upper resp iratory symptoms. Patient wears contacts but started wearing glasses yesterday. Recall patient is complaining of muffled hearing for the past few days. She denies any trauma. No ear pain. No other symptoms. ROS All systems reviewed and are negative except as per history of present illness. Medications Home Meds Active Scripts Polymyxin B Sulfate-TMP* (Polymyxin B-TMP Eye Drops*) 10 Ml Drops, 1 DROP RIGHT EYE QID for 7 Days, EA Prov:ENA TADEO PA-C 07/08/19 Erythromycin Base (Erythromycin) 1 Gm Oint...g., 1 APPLIC RIGHT EYE QID for 7 Days Prov:ENA TADEO PA-C 07/08/19 Naproxen* (Naprosyn*) 500 Mg Tablet, 500 MG PO BID PRN for PAIN AND/OR INFLAMMATION, #30 TAB Prov:ERIC JARAMILLO PA-C 06/21/19 Cephalexin* (Keflex*) 500 Mg Capsule, 500 MG PO QID for 7 Days, CAP Prov:ERIC JARAMILLO PA-C 06/21/19 Allergies Allergies: Coded Allergies: acetaminophen (Verified Allergy, Mild, 02/23/19) chest tightness PMhx/Soc Medical and Surgical Hx: pt denies Surgical Hx History of Surgery: No Anesthesia Reaction: No Hx Neurological Disorder: No Hx Respiratory Disorders: No Hx Cardiac Disorders: No Hx Psychiatric Problems: No Hx Miscellaneous Medical Probl: Yes (recurrent bladder infection) Hx Alcohol Use: No Hx Substance Use: No Hx Tobacco Use: No Smoking Status: Never smoker Physical Exam Vitals Vital Signs Date Temp Pulse Resp B/P (MAP) Pulse Ox O2 O2 Flow FiO2 Time Delivery Rate 07/08/19 97.6 75 17 111/72 99 07:27 (85) Physical Exam Const: No acute distress Head: Atraumatic Eyes: EOMI. PERRL. + Right conjunctival injection w/ erythematous eyelid margins. scant amount of green discharge. No eyelid swelling or periorbital swelling. Left eye normal. ENT: + Bilateral TMs impaction, external auditory canals normal. Neck: Full range of motion. No meningismus. Skin: No petechiae or rashes Neur: Awake and alert Psych: Normal Mood and Affect Procedures/MDM PROCEDURES: B/L TMs irrigated with warm saline, significant amount of cerumen was removed w/ improvement of her symptoms ED COURSE: The patient was given [] The medication was well tolerated and the patient had market improvement in s ymptoms. The patient remained stable throughout ED course. MEDICAL DECISION MAKING: This is 59-year-old female who presents with bacterial conjunctivitis of the right eye. Clinical picture not consistent with orbital cellulitis, deep space infection, globe rupture, retinal detachment or other ophthalmalic emergency. Given rx abx. Patient additionally has cerumen impaction of bilateral TMs, this improved status post ear irrigation. There was no evidence of TM perforation, acute otitis media/externa, or mastoiditis status post irrigation. Patient discharged home with PCP follow up and strict return precautions. PRESCRIPTIONS: Erythromycin ointment, polymyxin antibiotic drops SPECIALIST FOLLOW UP RECOMMENDED: None Departure Diagnosis: Primary Impression: Conjunctivitis Conjunctivitis type: unspecified Laterality: right Qualified Codes: H10.9 - Unspecified conjunctivitis Additional Impression: Cerumen impaction Laterality: bilateral Qualified Codes: H61.23 - Impacted cerumen, bilateral Condition: Stable Patient Instructions: Conjunctivitis Caused by Irritation, Cerumen Impaction, Home Care Referrals: [facility] Hours: Mon - Fri 9:00 AM - 5:00 PM Additional Instructions: No contacts used for the next 7 days, you can wear glasses. Avoid touching her eye. Use antibiotics as prescribed. Return here for any new or worsening symptoms. Follow-up with rn vascular sometime next week if symptoms not improved. ENA TADEO PA-C Jul 08, 2019 09:00
== END | disposition home or self-care (01) ==
LOC: FTE 07:23
DX: H10.9 Unspecified conjunctivitis (principal); H61.23 Impacted cerumen, bilateral

== ENCOUNTER 2019-07-25 23:56 | Emergency (ER) | payer MEDICAID ==
[~2019-07-25] VITALS: Ht 157.5 cm; Wt 55.7 kg
[~2019-07-25 23:56] MED LIST changes: +CARI350T29 PO; +IBUP-1542 PO; +ONDA4TAB14 PO; +POLY17PO6 PO
[2019-07-26 00:01] VITALS: Ht 157.5 cm; Wt 55.7 kg
[2019-07-26] MEDS ORDERED: KETOROLAC 30 MG INJ IV STA (01:44)
[2019-07-26] MEDS ORDERED: LIDOCAINE/MYLANTA 40 ML BTL PO ONE (02:00)
[2019-07-26] MEDS ORDERED: BISACODYL 10 MG SUPP PR ONE (02:00)
[2019-07-26] MEDS ORDERED: FAMOTIDINE 20 MG INJ IV ONE (02:00)
[2019-07-26 03:45] VITALS: BP 121/71; PULSE 86; RESP 16
== END 2019-07-26 03:51 | disposition home or self-care (01) ==
LOC: E/R 23:56
DX: K59.00 Constipation, unspecified (principal); R11.0 Nausea
CPT/HCPCS: 36415; 80053; 81003; 83690; 85025; 96374; 96375; J1885; Z7502; Z7610